=== PATIENT | male | born 1995 | race African-American/Black ===

== ENCOUNTER 2019-05-28 09:09 | Emergency (ER) | payer MEDICAID ==
[~2019-05-28] VITALS: Ht 185.4 cm; Wt 84.5 kg
[2019-05-28 09:10] VITALS: BP 134/83
== END 2019-05-28 10:24 | disposition home or self-care (01) ==
LOC: ER 09:09
DX: R05 Cough (principal); R50.9 Fever, unspecified; M79.18 Myalgia, other site
CPT/HCPCS: 99281